=== PATIENT | female | born 2000 | race African-American/Black ===

== ENCOUNTER 2023-09-01 09:56 | Emergency (ER) | payer MEDICAID, SELFPAY ==
[2023-09-01 09:57] VITALS: BP 120/68; PULSE 86; RESP 16; TEMP 36.1; O2SAT 99; BMI 17.9
--- NOTE | 2023-09-01 10:05 | US_ITS ---
EXAM: US , TRANSVAGINAL CLINICAL INDICATION: vaginal bleeding TECHNIQUE: Real-time endovaginal obstetrical ultrasound of the maternal pelvis and a first trimester with image documentation. Transvaginal imaging was used for better evaluation of the fetus and adnexa. COMPARISON: No relevant prior studies available. FINDINGS: UTERUS/CERVIX: Uterus measures 8.6 x 4.8 x 4.4 cm. Solid tissue distention of the endometrial cavity and endocervical canal measuring 14 mm in maximum AP diameter consistent with retained blood products/retained products of conception. There is no intrauterine gestational sac identified. OVARIES: Left ovary measures 3.4 x 2.5 x 1.6 cm. Right ovary is obscured by overlying bowel gas. No mass. FREE FLUID: Free fluid noted within the cul-de-sac. US/Transvaginal w/Preg US IMPRESSION: No intrauterine gestational sac. Residual blood products/buttocks of conception distending the endometrial cavity and endocervical canal. Electronically Signed: Ramón Denise MD at 12:43 EDT ,
--- NOTE | 2023-09-01 10:21 | EDS_ITS ---
HPI HPI - Female History of Present Illness Chief Complaint: Vag Bld, Preg Narrative Narrative: 23-year-old female presenting as concern for vaginal bleeding in . She states she is about 7 weeks . This is her second . Her first ended with live premature of her son however the son apparently aspirated on breastmilk at a young age and diet. States that she does not want to have this child and she wants to get an . She went to the clinic last week and is planning to have an on Wednesday of this week. She states that she has been having vaginal bleeding for the last few days. She has had some other darker looking drainage vaginally. She has not seen any clots that she knows of. She is some abdominal cramping which is diffuse. She does not have an [employer]. Patient states she went to urgent care where she was told she has an ectopic . She does not have lateralizing pain and only describes cramping in the abdomen. She states actually improved today. Patient does not know what blood type she is. She states that they did do blood work at her clinic last week but she does not know what her hCG levels were. PFSH PFSH Allergy/AdvReac Type Severity Reaction Status Date / Time No Known Allergies Allergy Verified 09/01/23 09:59 Social History Smoking Status: Never smoker ROS ROS ED Constitutional Constitutional ED: Denies chills, fever(s) or sweats Eyes Eyes: Denies blurry vision or change in vision ENT ENT ED: Denies ear pain or sore throat Cardiovascular Cardiovascular: Denies chest pain, palpitations or racing heartbeat Respiratory/Chest Respiratory/Chest: Denies cough, dyspnea or sputum Gastrointestinal Gastrointestinal: Reports abdominal pain and other; Denies constipation, diarrhea, nausea or vomiting Genitourinary Genitourinary ED: Reports other Details: Vaginal bleeding ; Denies dysuria, hematuria or urinary frequency Musculoskeletal Musculoskeletal: Denies arthralgias, myalgias or neck pain Integumentary Denies abscess, Abrasions or rash Neurologic Neurologic: Denies headache(s), paresthesias or weakness Psychiatric Psychiatric: Denies anxiety, depression, suicidal ideation or suicidal thoughts Endocrine Endocrinology: Denies polydipsia or polyuria EXAM Physical Exam Const Vital Signs: 09/01/23 09:57 Temperature 97.0 F L Temperature Source Temporal Pulse Rate 86 Respiratory Rate 16 Blood Pressure 120/68 Blood Pressure Mean 85 Pulse Ox 99 Oxygen Delivery Method Room Air Positive well nourished General Appearance ED: NAD HEENT Reports moist mucous membranes Eyes PERRL and EOMs intact bilaterally General Eye ED: Negative for pale conjunctiva Chest Wall inspection of chest normal Resp normal respiratory effort Cardio regular rate and regular rhythm GI normal to inspection, nondistended, normoactive bowel sounds Extremity normal to inspection Neuro oriented x3 and CN's II-XII intact bilaterally Sensorium / Orientation: alert Psych mental status grossly normal Skin no rashes or lesions noted and no wounds MDM MDM MDM Narrative Medical decision making narrative: Patient presenting with vaginal bleeding in . She states she had a confirmed intrauterine about a week ago but there was no heartbeat. Patient does not know what her hCG levels are. Differential includes ectopic , first trimester , threatened miscarriage, complete miscarriage, incomplete miscarriage. CBC will be obtained to assess white blood cell count, hemoglobin, platelets. BMP to assess renal function electrolytes. Urinalysis to assess for UTI. Rh was obtained to assess patient's blood type. Transvaginal ultrasound will be obtained. Serum hCG titer will be obtained as well. CBC and BMP unremarkable. hCG is quite low at 299 for 7 weeks gestation. Urinalysis negative. Obstetric ultrasound was obtained which shows demise and likely retained products of conception versus blood. I spoke with Dr. Kinsey regarding the patient and she stated that the patient needed to follow-up with her as an outpatient as she is not established. She is to monitor for increasing bleeding. If she has fever, bleeding through 1 or more pad an hour, worsening abdominal pain she is return to the ER. Patient states for [place] and does not live near here. I counseled her that she could follow-up with an [employer] locally as well. She states she is not affiliated with [employer]. Patient does state that she has an scheduled for Wednesday but Dr. Kinsey states that she does not need to follow through me to follow-up with her in outpatient to make sure that he passes the current products of conception. Impression: 1. Incomplete miscarriage 2. Retained products of conception Lab Data Attestation: I reviewed the patient's lab results. Labs: Laboratory Results - last 24 hr 09/01/23 09/01/23 10:15 10:54 WBC 4.8 RBC 4.74 Hgb 11.7 L Hct 37.8 MCV 79.7 L MCH 24.7 L MCHC 31.0 L RDW Std Deviation 51.1 H RDW Coeff of [place] 18.0 H Plt Count 349 MPV 10.7 Immature Gran % (Auto) 0.200 Neut % (Auto) 55.1 Lymph % (Auto) 35.1 [place] % (Auto) 6.3 Eos % (Auto) 2.5 Baso % (Auto) 0.8 Absolute Neuts (auto) 2.6 Absolute Lymphs (auto) 1.68 Nucleated RBC % 0 Sodium 138 Potassium 3.6 Chloride 109 H Carbon Dioxide 26.0 Anion Gap 3 L BUN 12 Creatinine 0.72 Estim Creat Clear Calc 102.68 Est GFR (MDRD) Af Amer 130 Est GFR (MDRD) Non-Af 108 BUN/Creatinine Ratio 16.8 Glucose 77 Calcium 8.8 HCG, Quant 299 H Urine Color Yellow Urine Clarity Sl. Cloudy Urine pH 6.0 Ur Specific [place] 1.020 Urine Protein 30 H Urine Glucose (UA) Normal Urine Ketones 5 H Urine Occult Blood 150 H Urine Nitrite Negative Urine Bilirubin Negative Urine Urobilinogen 1 H Ur Leukocyte Esterase 25 H Urine RBC 10-25 SEEN Urine WBC 0-5 SEEN Ur Squamous Epith Cells 0-5 SEEN Urine Bacteria 0 SEEN Urine Mucus 1+ Blood Type O POSITIVE Radiography Diagnostic Testing: Clinical Impression(s) from Imaging Studies Obstetrics Ultrasound 09/01/23 10:05 IMPRESSION: No intrauterine gestational sac. Residual blood products/buttocks of conception distending the endometrial cavity and endocervical canal. Electronically Signed: Ramón Denise MD at 12:43 EDT , Discharge Plan Triage Chief Complaint: Vag Bld, Preg ED Provider: Hermilo Matta Dx/Rx/DC Orders Clinical Impression: Retained products of conception Instructions: ED MISCARRIAGE Incomplete, ED DEMISE Primary Care Provider: Care Physician,No Primary Referrals: Manda Holloway MD [Med Staff - Active Staff] - 1 Day Care Physician,No Primary [Primary Care Provider] - Disposition Disposition: Home, Self Care
[2023-09-01 10:54] LABS: Absolute Lymphocyte Count 1.68 X10^3/uL (0.83-4.51); Absolute Neutrophil Count 2.6 X10^3/uL (2.0-7.7); Basophil# 0.04 X10^3/uL; Basophil% 0.8 % (0-1); Eosinophil# 0.12 X10^3/uL; Eosinophils% 2.5 % (0-5); Hematocrit 37.8 % (37-47); Hemoglobin 11.7 g/dL (12.0-15.0); Lymphocyte # 1.68 X10^3/ul (0.83-4.51); Lymphocyte % 35.1 % (19-41); Mean Corpuscular Hgb 24.7 pg (27.0-32.0); Mean Corpuscular Volume 79.7 fL (81-99); Mean Platelet Vol. 10.7 fl (6.2-12.0); Monocyte% 6.3 % (0-10); NRBC Flagged by Analyzer 0 % (0-5); Neutrophil # 2.63 X10^3/uL (2.7-7.7); Neutrophil % 55.1 % (47-70); Platelet Count 349 K/mm3 (150-450); RBC Distribution Width SD 51.1 fl (35.1-43.9); Red Blood Count 4.74 M/mm3 (4.2-5.4); White Blood Count 4.8 K/mm3 (4.4-11.0)
[2023-09-01 11:02] LABS: Bacteria 0 SEEN /hpf (None Seen)
[2023-09-01 11:12] LABS: Anion Gap 3 (5-15); BUN 12 mg/dL (7-18); BUN/Creat Ratio 16.8 RATIO (10-20); Calcium,Total 8.8 mg/dL (8.5-10.1); Chloride 109 mmol/L (98-107); Creatinine, Serum 0.72 mg/dL (0.55-1.02); EST Glomerular Filtration Rate 108 mL/min (>60); Est Glom Filt Rate - Afr Amer 130 mL/min (>60); Estimated Creatinine Clearance 102.68 ml/min; Glucose 77 mg/dL (74-106); Potassium 3.6 mmol/L (3.5-5.1); Sodium Level 138 mmol/L (136-145)
[2023-09-01 11:15] LABS: Color, Urine Yellow (Yellow); Glucose, Dipstick Normal (Normal); Ketone-Dipstick 5 mg/dl (Negative); Leukocyte Esterase-Dipstick 25 /ul (Negative); Nitrite-Dipstick Negative (Negative); Occult Blood-Urine 150 /ul (Negative); Protein-Dipstick 30 mg/dl (Negative); Urine Bilirubin Dipstick Negative (Negative); Urine Clarity Sl. Cloudy (Clear); Urine Urobilinogen 1 mg/dl (Normal)
[2023-09-01 11:21] LABS: hCG Titer Quant., Serum 299 mIU/mL (1-3)
[2023-09-01 11:30] LABS: Mucous, Urine 1+ /hpf (<or=2+); Red Blood Cells-Urine 10-25 SEEN /hpf (0-5); Squamous Epithelial Cells - UA 0-5 SEEN /hpf (5-10); White Blood Cells 0-5 SEEN /hpf (0-5)
[2023-09-01 13:53] VITALS: RESP 16
[2023-09-01 13:54] VITALS: RESP 16
== END 2023-09-01 13:55 | disposition home or self-care (01) ==
PROVIDERS: Emergency Provider Student in an Organized Health Care Education/Training Program; Visit Provider Student in an Organized Health Care Education/Training Program
DX: O03.4 Incomplete spontaneous abortion without complication (principal)
CPT/HCPCS: 76817; 80048; 81001; 84702; 85025; 86900; 86901; 99282; A4216